=== PATIENT | female | born 1990 | race Two or more races ===

== ENCOUNTER 2024-02-23 13:22 | Emergency (ER) | payer OTHER ==
[~2024-02-23] VITALS: Ht 152.4 cm; Wt 68.0 kg
[2024-02-23 15:19] VITALS: BP 142/85; O2SAT 99
[2024-02-23] MEDS ORDERED: GUAIFEN/DEXTROMETHORPHAN/PE PED LIQUID PO STA (17:21)
[2024-02-23] MEDS ORDERED: GUAIFENESIN/DEXTROMETHORPHAN 10ML BLIST.PACK PO ONE (17:26)
[2024-02-23 18:13] LABS: HEMATOCRIT 41.5 % (36.0-45.00); HEMOGLOBIN 13.4 g/dL (12.0-15.00); MEAN CELL VOLUME 87.2 fL (80.00-100.00); MEAN CORPUSCULAR HEMOGLOBIN 28.2 pg (27.00-32.0); MEAN CORPUSCULAR HGB CONC 32.3 g/dl (32.0-36.0); PLATELET COUNT 165 K/uL (150-450); RED BLOOD COUNT 4.76 M/uL (4.00-6.00); RED CELL DISTRIBUTION WIDTH 13.2 % (11.5-14.5)
== END 2024-02-23 19:19 | disposition home or self-care (01) ==
LOC: ER 13:24 → EMR PED 14:02 → ER 14:02 → EMR PED 19:19
DX: B34.9 Viral infection, unspecified (principal); Z20.822 Contact with and (suspected) exposure to COVID-19